=== PATIENT | female | born 1960 | race Caucasian/White ===

== ENCOUNTER 2020-06-28 07:40 | Emergency (ER) | payer MEDICAID ==
[2020-06-28] MEDS ORDERED: methylPREDNISolone Sod Succ/PF 125 MG/2 ML VIAL ONE (08:11)
--- NOTE | 2020-06-28 08:54 | RAD ---
2 VIEW CHEST: Date: 06/28/2020 HISTORY: Cough. FINDINGS: No evidence of infiltrate or consolidation. No significant effusion. Mild increased interstitial ryan ings suggest chronic change. Heart size within normal range. IMPRESSION: Chronic lung parenchymal changes. No evidence of acute infiltrate. POS: [id number]
== END 2020-06-28 08:52 | disposition home or self-care (01) ==
LOC: NAV ERS 07:40
DX: J44.1 Chronic obstructive pulmonary disease with (acute) exacerbation (principal); K21.9 Gastro-esophageal reflux disease without esophagitis; I10 Essential (primary) hypertension; F17.200 Nicotine dependence, unspecified, uncomplicated; Z79.899 Other long term (current) drug therapy; Z79.82 Long term (current) use of aspirin
CPT/HCPCS: 71046; 96374; J2930